=== PATIENT | female | born 1940 | race Caucasian/White ===

== ENCOUNTER → 2016-06-17 | Outpatient (CLI) | payer MEDICARE, BC ==
[~2016-06-17] MED LIST: ACYC-1 PO; AMLO10TA62 PO; IRBE300T7 PO; OMEP-29 PO; SERT-88 PO
== END ==
LOC: WC.BC 08:05
DX: Z12.31 Encounter for screening mammogram for malignant neoplasm of breast (principal)
CPT/HCPCS: 77063; G0202